=== PATIENT | male | born 1965 | race Caucasian/White ===

== ENCOUNTER 2021-12-16 10:52 | Emergency (ER) | payer OTHER ==
[~2021-12-16] VITALS: Ht 172.7 cm; Wt 104.0 kg
[2021-12-16] MEDS ORDERED: ACET-1158 PO (13:53)
[2021-12-16] MEDS ORDERED: CEPH-509 PO (13:53)
[2021-12-16] MEDS ORDERED: TETANUS-DIPTH-ACEL PERTUSSIS 0.5ML SYR Tdap IM ONE (14:00)
[2021-12-16] MEDS ORDERED: cefTRIAXone SOD 1,000 MG VL IM ONE (14:00)
[2021-12-16] MEDS ORDERED: KETOROLAC TROMETH 60MG/2ML VIAL IM ONE (14:00)
[2021-12-16 14:19] VITALS: BP 152/89
== END 2021-12-16 14:26 | disposition home or self-care (01) ==
LOC: ER 10:52
DX: L03.116 Cellulitis of left lower limb (principal); M25.562 Pain in left knee; I10 Essential (primary) hypertension; Z90.89 Acquired absence of other organs; Z79.899 Other long term (current) drug therapy
CPT/HCPCS: 73562; 90471; 90715; 96372; 99284; J0696; J1885

== ENCOUNTER 2022-01-28 15:50 | Emergency (ER) | payer OTHER ==
[~2022-01-28] VITALS: Ht 172.7 cm; Wt 101.3 kg
[~2022-01-28 15:50] MED LIST: ACET-1158 PO; CEPH-509 PO
[2022-01-28] MEDS ORDERED: APIX5TAB PO (16:40)
[2022-01-28 16:47] VITALS: BP 141/91
[2022-01-28] MEDS ORDERED: APIXABAN 5 MG TAB PO SCH ×2 (22:00)
== END 2022-01-28 16:40 | disposition home or self-care (01) ==
LOC: ER 15:50
DX: I82.401 Acute embolism and thrombosis of unspecified deep veins of right lower extremity (principal); E11.9 Type 2 diabetes mellitus without complications; I10 Essential (primary) hypertension

== ENCOUNTER 2022-03-12 18:57 | Emergency (ER) | payer OTHER ==
[~2022-03-12 18:57] MED LIST changes: +APIX5TAB PO
== END 2022-03-12 19:15 | disposition left against medical advice (07) ==
LOC: ER 18:57
DX: T17.208A Unspecified foreign body in pharynx causing other injury, initial encounter (principal); Z53.21 Procedure and treatment not carried out due to patient leaving prior to being seen by health care provider; X58.XXXA Exposure to other specified factors, initial encounter; Y93.89 Activity, other specified; Y92.89 Other specified places as the place of occurrence of the external cause; Y99.8 Other external cause status

== ENCOUNTER 2023-12-20 12:10 | Inpatient (IN) | payer OTHER ==
[~2023-12-20] VITALS: Ht 172.7 cm; Wt 99.0 kg
[~2023-12-20 12:10] MED LIST changes: -ACET-1158 PO; +ACET500T58 PO
[2023-12-20 14:37] LABS: Basophils # (auto) 0 10 ^3/uL (0-0.2); Basophils % (auto) 0.1 % (0.0-2.0); Eosinophils # (auto) 0.4 10 ^3/uL (0-0.8); Eosinophils % (auto) 3.9 % (0.0-7.0); Hemoglobin 17.5 g/dL (13.5-17.5); Lymphocytes # (auto) 3.3 10 ^3/uL (0.4-5.4); Lymphocytes % (auto) 32.5 % (10.0-50.0); Mean Corpuscular Hemoglobin 29.8 pg (28.0-32.0); Mean Corpuscular Hgb Conc. 34.9 g/dL (32.0-36.0); Mean Corpuscular Volume 85.2 fL (80.0-100.0); Monocytes % (auto) 10.1 % (0.0-12.0); Neutrophils # (auto) 5.5 10 ^3/uL (1.6-8.6); Neutrophils % (auto) 53.4 % (37.0-80.0); Nucleated Red Blood Cells % 0.5 %; Platelet Count (auto) 241 10^3/uL (140-450); Red Blood Cells 5.87 10^6/uL (4.5-5.90); Red Cell Distribution Width 13.8 % (11.8-14.3); White Blood Cell 10.3 10^3/uL (4.4-10.8)
[2023-12-20 14:49] LABS: Alanine Aminotransferase 62 U/L (7-40); Albumin 4.4 g/dL (3.2-4.8); Alkaline Phosphatase 100 U/L (46-116); Anion Gap 4 (5-15); Aspartate Aminotransferase 27 U/L (13-40); BUN/Creatinine Ratio 10.4 (10.0-20.0); Bilirubin, Total 1.4 mg/dL (0.2-1.0); Blood Urea Nitrogen 22 mg/dL (9-23); Calcium 9.2 mg/dL (8.7-10.4); Carbon Dioxide 28 mmol/L (20-30); Chloride 106 mmol/L (98-107); Glucose 225 mg/dL (74-106); Magnesium 1.6 mg/dL (1.6-2.6); Potassium 3.4 mmol/L (3.5-5.1); Sodium 138 mmol/L (136-145); Total Protein 6.2 g/dL (5.7-8.2)
[2023-12-20 15:22] LABS: Urine Bacteria FEW /hpf (None Seen); Urine Blood Negative /uL (Negative); Urine Clarity Turbid (Clear); Urine Color Yellow (Yellow); Urine Hyaline Cast FEW /lpf (0 - 2); Urine Mucus FEW (None Seen); Urine Protein, UAD 2+ (Negative); Urine Specific Gravity 1.023 (1.001-1.035); Urine Urobilinogen Normal (Negative); Urine WBC 3 /hpf (0 - 3)
[2023-12-20] MEDS: METOCLOPRAMIDE HCL 5MG/ml INJ 2ml VIAL IV ONE (15:49)
[2023-12-20] MEDS: HYDROmorphone HCL 2 MG/ML VL/or syr IM ONE (15:50)
[2023-12-20] MEDS: SODIUM CHLORIDE 0.9% 1,000 ML IV ONE ×2 (15:50→15:59)
[2023-12-20] MEDS: POTASSIUM EFFERVESENT TAB 25 MEQ PO ONE (17:30)
[2023-12-20] MEDS: LEVOTHYROXINE SODIUM 100 MCG TAB PO ONE (17:37)
[2023-12-20] MEDS ORDERED: MORPHINE SULFATE INJ 2 MG/ml SYRG IV PRN (17:45)
[2023-12-20] MEDS ORDERED: DOCUSATE SOD 100 MG CAP PO PRN (17:45)
[2023-12-20] MEDS: ENOXAPARIN SOD 40 MG/0.4 ML SYRINGE SC SCH (17:45)
[2023-12-20] MEDS ORDERED: DEXTROSE (50%) 50ML SYRG IV PRN (17:45)
[2023-12-20] MEDS ORDERED: ONDANSETRON HCL 4 MG/2 ML VIAL IV PRN (17:45)
[2023-12-20] MEDS ORDERED: NITROGLYCERIN 0.4 MG SL TAB SL PRN (17:45)
[2023-12-20 18:17] LABS: Sodium Urine < 10 mmol/L (40-220)
[2023-12-20 18:23] VITALS: PULSE 89; RESP 18; O2SAT 93
[2023-12-20 18:32] LABS: Creatinine, Urine 403.61 mg/dL (30.0-125.0)
[2023-12-20] MEDS: SODIUM CHLORIDE 0.9% 1,000 ML IV SCH (18:40)
[2023-12-20] MEDS: ACCU-CHEK COMFORT CURVE STRIP VI SCH (21:58)
[2023-12-20] MEDS: InsuLIN REG 1unit/0.01ml Soln (100units/ml) SC SCH (22:15)
[2023-12-20 22:30] VITALS: PULSE 75; RESP 18; O2SAT 98
[2023-12-20 22:41] VITALS: BP 109/80; PULSE 99; RESP 18; TEMP 98.7; O2SAT 96
[2023-12-20] MEDS ORDERED: METF-1145 PO (22:41)
[2023-12-20] MEDS ORDERED: LEVO137T3 PO (22:41)
[2023-12-20] MEDS ORDERED: ATOR10TA52 PO (22:41)
[2023-12-20] MEDS ORDERED: LOSA50TA30 PO (22:41)
[2023-12-21 01:00] VITALS: BP 112/64; PULSE 83; RESP 16; TEMP 98.2; O2SAT 99
[2023-12-21 06:17] LABS: Basophils # (auto) 0 10 ^3/uL (0-0.2); Basophils % (auto) 0.2 % (0.0-2.0); Eosinophils # (auto) 0.5 10 ^3/uL (0-0.8); Eosinophils % (auto) 5.4 % (0.0-7.0); Hemoglobin 14.3 g/dL (13.5-17.5); Lymphocytes # (auto) 3.3 10 ^3/uL (0.4-5.4); Lymphocytes % (auto) 36.3 % (10.0-50.0); Mean Corpuscular Hemoglobin 30.2 pg (28.0-32.0); Mean Corpuscular Hgb Conc. 35.8 g/dL (32.0-36.0); Mean Corpuscular Volume 84.5 fL (80.0-100.0); Monocytes % (auto) 11.5 % (0.0-12.0); Neutrophils # (auto) 4.3 10 ^3/uL (1.6-8.6); Neutrophils % (auto) 46.6 % (37.0-80.0); Nucleated Red Blood Cells % 0.2 %; Platelet Count (auto) 177 10^3/uL (140-450); Red Blood Cells 4.73 10^6/uL (4.5-5.90); Red Cell Distribution Width 13.5 % (11.8-14.3); White Blood Cell 9.1 10^3/uL (4.4-10.8)
[2023-12-21 06:26] LABS: Alanine Aminotransferase 47 U/L (7-40); Albumin 3.5 g/dL (3.2-4.8); Alkaline Phosphatase 77 U/L (46-116); Anion Gap 5 (5-15); Aspartate Aminotransferase 18 U/L (13-40); Blood Urea Nitrogen 18 mg/dL (9-23); Carbon Dioxide 25 mmol/L (20-30); Chloride 109 mmol/L (98-107); Lipase 58 U/L (12-53); Potassium 3.3 mmol/L (3.5-5.1); Sodium 139 mmol/L (136-145)
[2023-12-21 06:27] LABS: Bilirubin, Total 0.9 mg/dL (0.2-1.0); Total Protein 5.1 g/dL (5.7-8.2)
[2023-12-21 06:28] LABS: Glucose 114 mg/dL (74-106)
[2023-12-21 09:14] VITALS: BP 130/69; PULSE 72; RESP 16; TEMP 98.3; O2SAT 97
[2023-12-21] MEDS: levoFLOXacin 250MG 50 ML IV ONE (10:33)
[2023-12-21] MEDS: POTASSIUM CHL 10 Meq TABLET PO ONE (11:34)
[2023-12-21] MEDS: metroNIDAZOLE 500MG/100ML 100 ML IV ONE (11:35)
[2023-12-21 13:00] VITALS: BP 123/73; PULSE 82; RESP 16; TEMP 98.2; O2SAT 92
[2023-12-21] MEDS: metroNIDAZOLE 500MG/100ML 100 ML IV SCH (14:08)
[2023-12-21 17:00] VITALS: BP 151/92; PULSE 74; RESP 18; TEMP 98.3; O2SAT 99
[2023-12-21 21:00] VITALS: BP 134/83; PULSE 75; RESP 18; TEMP 98.2; O2SAT 99
[2023-12-22] VITALS (8 sets, daily range): BP systolic 120–151; BP diastolic 68–100; PULSE 76–98; RESP 18–24; TEMP 97.3–98.3; O2SAT 96–100
[2023-12-22 06:03] LABS: Basophils # (auto) 0 10 ^3/uL (0-0.2); Basophils % (auto) 0.1 % (0.0-2.0); Eosinophils # (auto) 0.5 10 ^3/uL (0-0.8); Eosinophils % (auto) 5.3 % (0.0-7.0); Hematocrit 36.1 % (41.0-53.0); Hemoglobin 13.2 g/dL (13.5-17.5); Lymphocytes # (auto) 3.4 10 ^3/uL (0.4-5.4); Mean Corpuscular Hemoglobin 30.5 pg (28.0-32.0); Mean Corpuscular Hgb Conc. 36.4 g/dL (32.0-36.0); Mean Corpuscular Volume 83.7 fL (80.0-100.0); Monocytes # (auto) 0.8 10 ^3/uL (0-1.3); Monocytes % (auto) 9.6 % (0.0-12.0); Nucleated Red Blood Cells % 0.1 %; Platelet Count (auto) 165 10^3/uL (140-450); Red Blood Cells 4.32 10^6/uL (4.5-5.90); Red Cell Distribution Width 13.6 % (11.8-14.3); White Blood Cell 8.7 10^3/uL (4.4-10.8)
[2023-12-22 06:17] LABS: Chloride 111 mmol/L (98-107); Potassium 3.1 mmol/L (3.5-5.1); Sodium 140 mmol/L (136-145)
[2023-12-22 06:18] LABS: Anion Gap 1 (5-15); Carbon Dioxide 28 mmol/L (20-30)
[2023-12-22 06:23] LABS: BUN/Creatinine Ratio 8.4 (10.0-20.0); Blood Urea Nitrogen 10 mg/dL (9-23); Glucose 122 mg/dL (74-106)
[2023-12-22] MEDS: levoFLOXacin 250MG 50 ML IV SCH (08:33)
[2023-12-22 10:49] LABS: Hepatitis B Surface Antigen Negative (Negative)
[2023-12-22 11:11] LABS: Hepatitis C Antibody Negative (Negative)
[2023-12-23 01:00] VITALS: BP 143/90; PULSE 89; RESP 18; TEMP 98.2; O2SAT 99
[2023-12-23 05:00] VITALS: BP 122/63; PULSE 80; RESP 18; TEMP 98.4; O2SAT 97
[2023-12-23] MEDS: LEVOTHYROXINE SODIUM 25 MCG TAB PO SCH (05:50)
[2023-12-23] MEDS: LEVOTHYROXINE SODIUM 112 MCG TAB PO SCH (05:50)
[2023-12-23 08:05] VITALS: PULSE 74; RESP 19; O2SAT 98
[2023-12-23 08:44] VITALS: BP 148/86; PULSE 74; RESP 19; TEMP 98; O2SAT 98
[2023-12-23] MEDS ORDERED: LEVO500T91 PO (09:20)
[2023-12-23] MEDS ORDERED: METR-344 PO (09:20)
[2023-12-23] MEDS ORDERED: LEVOTHYROXINE SODIUM 25 MCG TAB PO SCH (10:00)
[2023-12-23 10:17] VITALS: BP 148/86; PULSE 74; RESP 19; TEMP 36.7; O2SAT 98
[2023-12-23 13:18] VITALS: BP 126/83; PULSE 67; RESP 19; TEMP 97.7; O2SAT 97
== END 2023-12-23 11:41 | disposition home or self-care (01) | DRG 391 ==
LOC: ER 12:10 → OVERFLOW 17:45 → CENTRAL 22:22
PROVIDERS: ADMIT Nurse Practitioner Family; ATTEND Family Medicine
DX: K52.9 Noninfective gastroenteritis and colitis, unspecified (principal); N17.0 Acute kidney failure with tubular necrosis; E11.21 Type 2 diabetes mellitus with diabetic nephropathy; E11.65 Type 2 diabetes mellitus with hyperglycemia; E87.6 Hypokalemia; E89.0 Postprocedural hypothyroidism; I10 Essential (primary) hypertension
CPT/HCPCS: 36415; 71046; 71250; 74176; 80048; 80053; 81001; 82570; 82962; 83036; 83690; 83735; 84100; 84300; 84443; 84484; 85025; 86803; 87045; 87340; 87427; 87493; 93005; 96360; 96372; G0378; J1815; J3490